=== PATIENT | male | born 1990 | race Caucasian/White ===

== ENCOUNTER 2016-09-21 03:36 | Emergency (ER) | payer SELFPAY ==
[~2016-09-21] VITALS: Ht 190.5 cm; Wt 78.8 kg
[2016-09-21] MEDS ORDERED: LIDOCAINE-MPF 2% ,5ML ONE (03:50)
[2016-09-21] MEDS ORDERED: LIDOCAINE 1%, 20ML ONE (03:53)
[2016-09-21] MEDS ORDERED: ONDANSETRON 2MG/ML, 2ML ONE (03:57)
[2016-09-21] MEDS ORDERED: HYDROmorphone 1 MG/ML, 1ML ONE (03:57)
[2016-09-21] MEDS ORDERED: HYDROmorphone 1 MG/ML, 1ML IV ONE ×2 (04:00→04:30)
[2016-09-21] MEDS ORDERED: LIDOCAINE 1%, 20ML INFIL ONE (04:00)
[2016-09-21] MEDS ORDERED: ONDANSETRON 2MG/ML, 2ML IVPush ONE (04:00)
[2016-09-21] MEDS ORDERED: ESCI20TA10 PO (04:10)
[2016-09-21] MEDS ORDERED: AMPH20CA7 PO (04:11)
[2016-09-21] MEDS ORDERED: ZOLP10TA PO (04:11)
[2016-09-21] MEDS ORDERED: LEVO100T PO (04:12)
[2016-09-21 05:17] VITALS: BP 115/74
== END 2016-09-21 05:20 | disposition home or self-care (01) ==
LOC: ED 04:16
DX: S43.085A Other dislocation of left shoulder joint, initial encounter (principal); E03.9 Hypothyroidism, unspecified; X58.XXXA Exposure to other specified factors, initial encounter; Y93.89 Activity, other specified; Y92.89 Other specified places as the place of occurrence of the external cause; Y99.8 Other external cause status
CPT/HCPCS: 23650; 96374; 96375; 96376; 99284; J1170; J2405; J3490